=== PATIENT | female | born 1960 | race Caucasian/White ===

== ENCOUNTER 2018-06-24 06:41 | Day surgery (SDC) | payer BC ==
[~2018-06-24 06:41] MED LIST: ACETAMINOPHEN 1,000 MG/100 ML BTL IV ONE
[2018-06-24] MEDS ORDERED: LIDOCAINE 2% MDV (20MG/ML) 20ML VIAL IV ONE (06:42)
[2018-06-24] MEDS ORDERED: BETAMETHASONE 6 MG/1 ML 5ML VIAL IM ONE (06:42)
[2018-06-24] MEDS ORDERED: BUPIVACAINE 0.25% W/EPI MPF 30ML VIAL IVP ONE (06:42)
[2018-06-24] MEDS ORDERED: FENTANYL PF 100MCG/2ML VIAL IV ONE (06:42)
[2018-06-24] MEDS ORDERED: KETOROLAC 30 MG/ML VIAL IVP ONE (06:42)
[2018-06-24] MEDS ORDERED: MIDAZOLAM HCL 2MG/2ML VIAL IV ONE (06:42)
[2018-06-24] MEDS ORDERED: PROPOFOL 10 MG/ML VIAL IV ONE (06:42)
--- NOTE | 2018-06-24 14:30 | Operative Note ---
DATE OF SURGERY: 06/24/2018 Surgeon: Rigo Quick DO PREOPERATIVE DIAGNOSIS: Adhesive capsulitis of the left shoulder. POSTOPERATIVE DIAGNOSIS: Adhesive capsulitis of the left shoulder. OPERATION: 1. Manipulation under anesthesia, left shoulder. 2. Injection, left shoulder. DESCRIPTION OF PROCEDURE: This 57-year-old female was taken to the operating room and placed in the supine position on the operating room table where general anesthesia was induced. After satisfactory anesthetic, the patient's left shoulder was taken through range of motion and found to be restricted at approximately 80 degrees of abduction and at approximately 170 degrees of forward flexion and also restricted in adduction. Manipulation was carried out to 120 degrees of abduction, 180 degrees of flexion, external rotation to 90 degrees, internal rotation to 90 degrees. Full extension was possible without restrictions and manipulated to full adduction ( ). The shoulder was then again passively taken through range of motion with improved motion being identified. The anterior aspect of the shoulder was then prepped with alcohol and a 22-jeramy spinal needle was easily advanced into the glenohumeral joint and 2 mL of Celestone Soluspan and 3 mL of 0.25% Marcaine with epinephrine was injected into the glenohumeral joint without difficulty. The wound was then covered with a sterile bandage and the patient taken to the recovery room in satisfactory condition. GROSS PATHOLOGY: This patient demonstrated adhesive capsulitis of the left shoulder which was actually more mild than expected but still had destruction of cicatrix as described above. CC: Dr. Kelsey STRAUSS
== END 2018-06-24 09:40 | disposition home or self-care (01) ==
LOC: SUR 06:41
PROVIDERS: ATTEND Orthopaedic Surgery
DX: M75.02 Adhesive capsulitis of left shoulder (principal); E78.00 Pure hypercholesterolemia, unspecified; F17.210 Nicotine dependence, cigarettes, uncomplicated
CPT/HCPCS: 23700; 20610; 01620; J1885; J3010